=== PATIENT | female | born 1965 | race Caucasian/White ===

== ENCOUNTER → 2017-06-07 09:17 | Emergency (ER) | payer SELFPAY ==
[~2017-06-07 09:17] MED LIST: PPD test dose* 5 TU/0.1 ML TEST (*USE PPD ORDER SET*) INTRADERM ONE; PPD test dose* 5 TU/0.1 ML TEST (*USE PPD ORDER SET*) ONE
--- NOTE | 2017-06-21 07:17 | UC ---
Progress - Progress Note Progress Note: This was a physical and there is no documentation needed int he chart other than scanned in standardized physical form. This form is present under reports.
== END | disposition home or self-care (01) ==
LOC: OHCORT 09:17 → UCCORT 09:17
DX: Z00.00 Encounter for general adult medical examination without abnormal findings (principal); Z11.1 Encounter for screening for respiratory tuberculosis

== ENCOUNTER 2018-12-03 08:43 | Emergency (ER) | payer BC, OTHER ==
[2018-12-03 09:05] VITALS: BP 129/70
--- NOTE | 2018-12-03 09:25 | UC ---
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 Bit by autistic child. She believes child was negative for infectious disease, but will follow up with telephone instrument supervisor about records. States thumb is painful, throbbing. NO drainage noted, using bag balm over weekend. No redness, streaking. Pain over incisions. Able to move joint, however painful over bite wound. Last Tdap unknown, called PCP- no record of Tdap in last 2 years per PCP- estabished care with them in 07/2017. - History Of Current Complaint Chief Complaint: [employer] Stated Complaint: WC-RT HAND-THUMB INJURY Time Seen by Provider: 12/03/18 09:11 Hx Obtained From: Patient Hx Last Menstrual Period: 03/20/14 ?: No Onset/Duration: Sudden Onset, Lasting Days - monday Severity Initially: Moderate Severity Currently: Moderate Pain Intensity: 7 Pain Scale Used: 0-10 Numeric Character Of Pain: Sharp - with movement, Dull, Aching - at rest Aggravating Factor(s): Movement, Lifting Alleviating Factor(s): Nothing - Allergies/Home Medications Allergies/Adverse Reactions: Allergies Allergy/AdvReac Type Severity Reaction Status Date / Time No Known Allergies Allergy Verified 12/03/18 09:05 Home Medications: Home Medications Naproxen Sodium [Aleve] 220 mg PO DAILY PRN 12/03/18 [History Confirmed 12/03/18 ] PMH/Surg Hx/FS Hx/Imm Hx Previously Healthy: Yes - Surgical History Surgical History: Yes Surgery Procedure, Year, and Place: left knee - Family History Known Family History: Positive: Non-Contributory - Social History Alcohol Use: None Substance Use Type: None Smoking Status (MU): Light Every Day Tobacco Smoker Type: Cigarettes Amount Used/How Often: less than 1/4 pack Review of Systems All Other Systems Reviewed And Are Negative: Yes Constitutional: Positive: Negative Skin: Positive: Other - bite wound Neurological: Positive: Negative Is Patient Immunocompromised?: No Physical Exam - Summary Physical Exam Summary: non-tender to palpation over right thumb DIP. moderate TTP over prox thumb phalanx Triage Information Reviewed: Yes Appearance: Well-Appearing, No Pain Distress, Well-Nourished Vital Signs: Initial Vital Signs Temp 98.6 F 12/03/18 08:59 Pulse 75 12/03/18 08:59 Resp 18 12/03/18 08:59 BP 129/70 12/03/18 08:59 Pulse Ox 100 12/03/18 08:59 Vital Signs Reviewed: Yes Eyes: Positive: Conjunctiva Clear Musculoskeletal: Positive: No Edema, Strength Limited @ - decreased strength with flexion, 3/5 due to pain, ROM Limited @ - Decreased flexion to appx. 30 degrees., Other: - non- tender to palpation over thumb DIP right hand Neurological Exam: Normal Psychological Exam: Normal Skin: Positive: Other - wound openings, no bleeding drainage noted, over dorsal / volar aspect of right thumb, DIP. no redness, streaking. Hand/Wrist Course/Dx - Course Course Of Treatment: lab work for ID completed, Tdap given, ABX, follow up with employer for attacks ID status - Differential Dx/Diagnosis Provider Diagnosis: Bite wound of finger Discharge - Sign-Out/Discharge Documenting (check all that apply): Patient Departure All imaging exams completed and their final reports reviewed: No Studies - Discharge Plan Condition: Good Disposition: HOME Prescriptions: Amoxicillin/Clavulanate TAB* [Augmentin TAB 875*] 875 mg PO BID #14 tab Patient Education Materials: Amoxicillin/Clavulanate Potassium (By mouth), Human Bite (ED), Tdap and Td Vaccines for Adults (ED) Forms: *Work Release Referrals: Odilia Fleming MD [Primary Care Provider] - Ramirez Murrieta MD [Medical Doctor] - (Follow up with signs of infection, increased pain ) Additional Instructions: - Continue to monitor thumb pain- SHould improve with beginning antibiotics, if worsening of joint pain please follow with orthopedics immediately or go to ER - AUgmentin twice daily x 7 days - Follow up with supervisior for attackers status with HIV, Hepatitis - Keep wound clean, change dressing twice daily or as needed if wet, soiled. - FOllow up with orthopedics if redness, drainage develops. - Billing Disposition and Condition Condition: GOOD Disposition: Home - Attestation Statements Provider Attestation: I was available for consult. This patient was seen by the [facility]. The patient was not presented to, seen by, or examined by me. -Vandana
[2018-12-03] MEDS ORDERED: Tetan/Diph/Pertus SYR(Tdap)* 0.5 ML SYR(BOOSTRIX) use SYR IM ONE (09:31)
[2018-12-03 14:22] LABS: Hematocrit 44 % (35-47); Mean Corpuscular HGB Conc 34 g/dL (31-36); Mean Corpuscular Hemoglobin 31 pg (27-31); Mean Corpuscular Volume 89 fL (80-97); Platelet Count 299 10^3/uL (150-450); Red Blood Count 4.94 10^6 /uL (3.70-4.87); Red Cell Distribution Width 14 % (10.5-15); White Blood Count 8.6 10^3/uL (3.5-10.8)
[2018-12-03 14:31] LABS: Albumin 4.2 g/dL (3.2-5.2); Calcium 9.7 mg/dL (8.6-10.3); Potassium 4.3 mmol/L (3.5-5.0); Total Bilirubin 0.3 mg/dL (0.2-1.0)
[2018-12-03 14:37] LABS: Albumin/Globulin Ratio 1.5 (1-3); BUN/Creatinine Ratio 24.3 (8-20); EGFR African American 105.5 (>60); EGFR Non-African American 87.2 (>60); Globulin 2.8 g/dL (2-4)
[2018-12-04 16:01] LABS: HIV 4th Generation Negative (Negative); Hepatitis C Antibody Negative (Negative)
[2018-12-04 22:21] LABS: Hepatitis B Surface Antigen Negative (Negative)
== END 2018-12-03 10:07 | disposition home or self-care (01) ==
LOC: UCCORT 08:43
DX: S61.051A Open bite of right thumb without damage to nail, initial encounter (principal); F17.210 Nicotine dependence, cigarettes, uncomplicated; W50.3XXA Accidental bite by another person, initial encounter; Z23 Encounter for immunization; Y99.0 Civilian activity done for income or pay
CPT/HCPCS: 36415; 80053; 80074; 85027; 86703; 87389; 90471; 90715; 99212; G0463